=== PATIENT | male | born 1980 | race African-American/Black ===

== ENCOUNTER 2018-01-10 19:21 | Emergency (ER) | payer MEDICAID ==
[~2018-01-10] VITALS: Ht 177.8 cm; Wt 91.0 kg
[2018-01-10] MEDS ORDERED: KETOROLAC 30MG/ML VIAL IV STA (19:48)
[2018-01-10] MEDS ORDERED: CYCLOBENZAPRINE 10MG TABLET PO ONE (20:00)
[2018-01-10] MEDS ORDERED: GABAPENTIN 300MG CAPSULE PO ONE (20:00)
[2018-01-10 20:53] LABS: BASOPHILS % 1.3 % (0.0-2.0); EOSINOPHILS % 1.6 % (0.0-5.0); HEMOGLOBIN. 11.3 g/dL (14.0-18.0); LYMPHOCYTES % 52.2 % (20.0-50.0); MEAN CORPUSCULAR HEMOGLOBIN 33.2 pg (28.0-32.0); MEAN PLATELET VOLUME 6.4 fl (7.4-10.4); MONOCYTES % 11.4 % (2.0-8.0); NEUTROPHILS % 33.5 % (40.0-76.0); PLATELET 611 x1000/uL (130-400); RED BLOOD CELL COUNT 3.41 mill/uL (4.7-6.1); RED CELL DISTRIBUTION WIDTH 13.1 % (11.6-14.6)
[2018-01-10 20:55] LABS: CHLORIDE 103 mEq/L (98-107)
[2018-01-10 20:56] LABS: PROTHROMBIN TIME 10.3 sec (9.4-11.6)
[2018-01-10 21:09] LABS: CLARITY URINE CLEAR (CLEAR); COLOR URINE YELLOW (YELLOW); KETONES URINE NEGATIVE (NEGATIVE); LEUKOCYTE ESTERASE URINE NEGATIVE (NEGATIVE); NITRITE URINE NEGATIVE (NEGATIVE); OCCULT BLOOD URINE NEGATIVE (NEGATIVE); PROTEIN URINE NEGATIVE (NEGATIVE); SPECIFIC GRAVITY URINE 1.015 (1.005-1.030)
[2018-01-10] MEDS ORDERED: MORPHINE SULFATE 4 MG/ML CPJ (NOT FOR IM USE) IV ONE (21:15)
[2018-01-11 00:10] VITALS: BP 148/96
== END 2018-01-11 00:33 | disposition home or self-care (01) ==
LOC: ER 21:20
DX: M54.6 Pain in thoracic spine (principal); R53.1 Weakness; I63.9 Cerebral infarction, unspecified; F17.200 Nicotine dependence, unspecified, uncomplicated; I10 Essential (primary) hypertension; Z86.73 Personal history of transient ischemic attack (TIA), and cerebral infarction without residual deficits
CPT/HCPCS: 36415; 70450; 71045; 80053; 81003; 85025; 85610; 93005; 96374; 96375; 99285; J1885; J2270; Z7610